=== PATIENT | male | born 1980 | race Caucasian/White ===

== ENCOUNTER 2017-04-14 15:42 | Emergency (ER) | payer OTHER ==
[~2017-04-14] VITALS: Ht 175.3 cm; Wt 79.4 kg
[~2017-04-14 15:42] MED LIST: BENA5TAB4 PO; GLU500 PO; HUM; HYDR-3623 PO; LANTUS SC; SIMV20TA6 PO
[2017-04-14 15:59] VITALS: BP 139/85
--- NOTE | 2017-04-14 16:09 | NUR ---
36M BIB SELF C/O RIGHT THUMB AND RIGHT INDEX FINGER PAIN, NON-RADIATING, ACHING, 3/10 X2 WEEKS; PT STATES NO RECENT TRAUMA OR INJURY TO SITE AT THIS TIME; PT STATES " I'M NOT SURE, MAYBE I INJURED IT AT WORK"; PT RT CAP REFILL IMMEDIATE, RT RADIAL PULSE +3, NO LOSS OF SENSATION TO RT HAND AT THIS TIME; NO SWELLING OR ERYTHEMA NOTED TO SITE AT THIS TIME; PT AA&OX4, PERRLA, BL LUNG SOUNDS CLEAR, RR EVEN/UNLABORED, SKIN IS WARM/DRY/INTACT AT THIS TIME; STEADY GAIT; PT RESTING IN BED WITH HOB ELEVATED AND IN LOWEST POSITION; POSITIONED FOR COMFORT; ER MD MADE AWARE OF STATUS. WILL CONTINUE TO MONITOR.
--- NOTE | 2017-04-14 16:16 | NUR ---
Patient being evaluated by DR DAHL at bedside.
[2017-04-14] MEDS ORDERED: KETOROLAC 30 MG/ML VIAL IM ONE (16:20)
--- NOTE | 2017-04-14 16:23 | NUR ---
XRAY AT BEDSIDE.
[2017-04-14 16:57] VITALS: BP 129/81
--- NOTE | 2017-04-14 16:57 | NUR ---
Patient discharged with v/s stable. Written and verbal after care instructions given and explained. Patient alert, oriented and verbalized understanding of instructions. Ambulatory with steady gait. All questions addressed prior to discharge. ID band removed. Patient advised to follow up with PMD. Rx of NAPROXEN 500MG TAB given. Patient educated on indication of medication including possible reaction and side effects. Opportunity to ask questions provided and answered.
== END 2017-04-14 16:51 | disposition home or self-care (01) ==
LOC: MED 15:42
DX: S60.011A Contusion of right thumb without damage to nail, initial encounter (principal); E11.9 Type 2 diabetes mellitus without complications; I10 Essential (primary) hypertension; Z79.4 Long term (current) use of insulin; Z79.84 Long term (current) use of oral hypoglycemic drugs; Z79.899 Other long term (current) drug therapy; X58.XXXA Exposure to other specified factors, initial encounter; Y93.89 Activity, other specified; Y92.69 Other specified industrial and construction area as the place of occurrence of the external cause; Y99.0 Civilian activity done for income or pay
CPT/HCPCS: 73130; 96372; 99284; J1885